=== PATIENT | female | born 1955 | race Caucasian/White ===

== ENCOUNTER 2020-12-11 11:09 | Outpatient (CLI) | payer MEDICARE | END 2020-12-11 11:10 | disposition home or self-care (01) | LOC: BICMAMMO 11:09 | PROVIDERS: ATTEND Family Medicine | DX: N63.31 Unspecified lump in axillary tail of the right breast (principal); N63.15 Unspecified lump in the right breast, overlapping quadrants | CPT/HCPCS: 76642; 77066; G0279 ==

== ENCOUNTER 2021-01-17 20:24 | Inpatient (IN) | payer MEDICARE ==
[2021-01-18] MEDS ORDERED: Senokot S 8.6-50 MG TAB PO PRN (00:59)
[2021-01-18] MEDS ORDERED: Dextrose 50% Abboject 50 ML SYRINGE SLOW IVP PRN (01:03)
[2021-01-18] MEDS ORDERED: HumaLOG 300 UNITS/3 ML VIAL SC PRN ×2 (01:03)
[2021-01-18] MEDS ORDERED: Dextrose 5% in Water 1,000 ML IV PRN (01:03)
[2021-01-18 01:55] VITALS: BMI 29.0
[2021-01-18] MEDS: Ibuprofen 600 MG TAB PO PRN ×2 (02:48→16:20)
[2021-01-18 04:50] LABS: #Eosinphils 0.2 thou/uL (0.0-0.7); #Lymphocytes 2.1 thou/uL (1.20-3.40); #Monocytes 0.7 thou/uL (0.11-0.59); #Neutrophils 9.1 thou/uL (1.40-6.50); %Basophils 0.1 % (0.0-1.0); %Eosinophils 1.7 % (0.0-10.0); %Lymphocytes 17.4 % (21.0-51.0); %Monocytes 5.8 % (0.0-10.0); %Neutrophils 74.9 % (42.0-75.0); Hemoglobin 9.9 g/dL (12.0-16.0); Mean Corpuscular Hemoglobin 31.4 pg (27.0-31.0); Mean Corpuscular Volume 92.5 fL (78.0-98.0); Mean Platelet Volume 8.4 fL (7.4-10.4); Platelet Count 242 thou/uL (130-400); RBC Distribution Width 11.7 % (11.5-14.5); Red Blood Cell (RBC) Count 3.16 mill/uL (4.20-5.40); White Blood Cell (WBC) Count 12.2 thou/uL (4.8-10.8)
[2021-01-18 04:54] LABS: Hemoglobin A1c 8.8 % (4.0-6.0)
[2021-01-18 05:08] LABS: ALT (SGPT) 17 U/L (8-55); AST (SGOT) 16 U/L (5-34); Albumin 3.1 g/dL (3.4-4.8); Alkaline Phosphatase 142 U/L (40-110); Anion Gap 14 mmol/L (10-20); BUN (Urea Nitrogen) 16 mg/dL (9.8-20.1); Bilirubin, Total 0.5 mg/dL (0.2-1.2); Calc. Creatinine Clearance 86 mL/min (70-130); Calcium 8.8 mg/dL (7.8-10.44); Carbon Dioxide 19 mmol/L (23-31); Chloride 109 mmol/L (98-107); Globulin 3.5 g/dL (2.4-3.5); Glucose 405 mg/dL (80-115); Potassium 3.9 mmol/L (3.5-5.1); Protein, Total 6.6 g/dL (5.8-8.1); Sodium 138 mmol/L (136-145)
[2021-01-18] MEDS: Famotidine 20 MG TAB PO SCH ×2 (07:55→21:35)
[2021-01-18] MEDS: diphenhydrAMINE 25 MG CAP PO PRN ×2 (07:55→17:20)
[2021-01-18] MEDS: Cefepime 2 GM in Sodium Chloride 0.9% 100 ML IVPB SCH ×2 (08:57→21:34)
[2021-01-18] MEDS ORDERED: VANCOMYCIN 1.25 GM/250 ML BAG 1.25 GM in Premix Bag 1 BAG IVPB SCH (09:00)
[2021-01-18] MEDS: Enoxaparin Sodium 40 MG/0.4 ML SYRINGE SC SCH (09:07)
[2021-01-18] MEDS ORDERED: Magnevist 469MG/ML 20 ML VIAL ONE (11:02)
[2021-01-18] MEDS: Insulin Regular 300 UNITS/3 ML VIAL SC PRN ×3 (11:24→21:35)
[2021-01-18] MEDS: GUAIFENESIN SF SOLN 200 MG/10 ML UDCUP PO PRN ×2 (16:54→22:15)
[2021-01-18] MEDS: VANCOMYCIN 1.25 GM/250 ML BAG 1.25 GM in Premix Bag 1 BAG IVPB SCH (21:35)
[2021-01-19 04:55] LABS: #Eosinphils 0.5 thou/uL (0.0-0.7); #Lymphocytes 2.7 thou/uL (1.20-3.40); #Monocytes 0.8 thou/uL (0.11-0.59); #Neutrophils 7.8 thou/uL (1.40-6.50); %Basophils 0.2 % (0.0-1.0); %Eosinophils 4.3 % (0.0-10.0); %Monocytes 6.4 % (0.0-10.0); %Neutrophils 66.3 % (42.0-75.0); Hemoglobin 10.2 g/dL (12.0-16.0); Mean Corpuscular HGB CONC 33.9 g/dL (32.0-36.0); Mean Corpuscular Hemoglobin 31.6 pg (27.0-31.0); Mean Corpuscular Volume 93.3 fL (78.0-98.0); Platelet Count 279 thou/uL (130-400); RBC Distribution Width 11.8 % (11.5-14.5); Red Blood Cell (RBC) Count 3.24 mill/uL (4.20-5.40); White Blood Cell (WBC) Count 11.8 thou/uL (4.8-10.8)
[2021-01-19 05:18] LABS: ALT (SGPT) 28 U/L (8-55); AST (SGOT) 30 U/L (5-34); Albumin 3.3 g/dL (3.4-4.8); Alkaline Phosphatase 184 U/L (40-110); Anion Gap 10 mmol/L (10-20); BUN (Urea Nitrogen) 13 mg/dL (9.8-20.1); Bilirubin, Total 0.5 mg/dL (0.2-1.2); Calc. Creatinine Clearance 96 mL/min (70-130); Calcium 9.3 mg/dL (7.8-10.44); Carbon Dioxide 21 mmol/L (23-31); Chloride 110 mmol/L (98-107); Globulin 3.4 g/dL (2.4-3.5); Glucose 228 mg/dL (80-115); Potassium 4.1 mmol/L (3.5-5.1); Protein, Total 6.7 g/dL (5.8-8.1); Sodium 137 mmol/L (136-145)
[2021-01-19] MEDS: GUAIFENESIN SF SOLN 200 MG/10 ML UDCUP PO PRN ×4 (05:18→19:53)
[2021-01-19] MEDS: Insulin Regular 300 UNITS/3 ML VIAL SC PRN ×3 (06:28→16:31)
[2021-01-19] MEDS: metFORMIN 500 MG TAB PO SCH ×2 (08:17→16:29)
[2021-01-19] MEDS: Famotidine 20 MG TAB PO SCH ×2 (08:17→19:53)
[2021-01-19] MEDS: Cefepime 2 GM in Sodium Chloride 0.9% 100 ML IVPB SCH (08:17)
[2021-01-19] MEDS: Enoxaparin Sodium 40 MG/0.4 ML SYRINGE SC SCH (08:18)
[2021-01-19 08:40] LABS: Vancomycin, Trough 14.1 ug/mL
[2021-01-19] MEDS: VANCOMYCIN 1.25 GM/250 ML BAG 1.25 GM in Premix Bag 1 BAG IVPB SCH (09:37)
[2021-01-19] MEDS: Nateglinide 120 MG TAB PO SCH ×2 (11:35→16:29)
[2021-01-19] MEDS ORDERED: cefTRIAXone\\ROCEPHIN 2 GM in Sodium Chloride 0.9% 100 ML IVPB SCH (20:00)
[2021-01-19] MEDS ORDERED: Vancomycin 1.5 GRAM/300 ML BAG 1.5 GM in Premix Bag 1 BAG IVPB SCH (21:00)
[2021-01-20] MEDS: GUAIFENESIN SF SOLN 200 MG/10 ML UDCUP PO PRN ×4 (01:30→19:36)
[2021-01-20 04:04] LABS: #Basophils 0.1 thou/uL (0.0-0.2); #Eosinphils 0.5 thou/uL (0.0-0.7); #Lymphocytes 2.8 thou/uL (1.20-3.40); #Monocytes 0.8 thou/uL (0.11-0.59); #Neutrophils 6.9 thou/uL (1.40-6.50); %Basophils 0.5 % (0.0-1.0); %Eosinophils 4.2 % (0.0-10.0); %Monocytes 7.3 % (0.0-10.0); Hemoglobin 9.7 g/dL (12.0-16.0); Mean Corpuscular HGB CONC 32.3 g/dL (32.0-36.0); Mean Corpuscular Volume 92.9 fL (78.0-98.0); Mean Platelet Volume 7.7 fL (7.4-10.4); Platelet Count 310 thou/uL (130-400); RBC Distribution Width 11.8 % (11.5-14.5); Red Blood Cell (RBC) Count 3.22 mill/uL (4.20-5.40)
[2021-01-20 04:24] LABS: Anion Gap 10 mmol/L (10-20); BUN (Urea Nitrogen) 12 mg/dL (9.8-20.1); Calc. Creatinine Clearance 105 mL/min (70-130); Carbon Dioxide 22 mmol/L (23-31); Chloride 107 mmol/L (98-107); Glucose 227 mg/dL (80-115); Potassium 3.7 mmol/L (3.5-5.1); Sodium 135 mmol/L (136-145)
[2021-01-20] MEDS: Insulin Regular 300 UNITS/3 ML VIAL SC PRN (05:33)
[2021-01-20] MEDS: Nateglinide 120 MG TAB PO SCH ×3 (07:30→16:52)
[2021-01-20] MEDS: Ibuprofen 600 MG TAB PO PRN (09:45)
[2021-01-20] MEDS: Famotidine 20 MG TAB PO SCH ×2 (09:45→20:25)
[2021-01-20] MEDS: Enoxaparin Sodium 40 MG/0.4 ML SYRINGE SC SCH (09:47)
[2021-01-20] MEDS: metFORMIN 500 MG TAB PO SCH ×2 (11:23→16:52)
[2021-01-20] MEDS ORDERED: Magnevist 469MG/ML 20 ML VIAL ONE (14:10)
[2021-01-20] MEDS ORDERED: MEROPENEM 1 GM/50 ML 1 GM in Premix Bag 1 BAG IVPB SCH (16:30)
[2021-01-20] MEDS: Vancomycin HCl 1.25 GM in Sodium Chloride 0.9% 250 ML 250 ML IVPB SCH (16:53)
[2021-01-20] MEDS ORDERED: Lantus 1000 UNITS/10 ML VIAL SC SCH (18:00)
[2021-01-20] MEDS ORDERED: Meropenem 1 GM in Sodium Chloride 0.9% 100 ML IVPB SCH (22:00)
[2021-01-21] MEDS: GUAIFENESIN SF SOLN 200 MG/10 ML UDCUP PO PRN ×3 (00:14→08:41)
[2021-01-21] MEDS: MEROPENEM 1 GM/50 ML 1 GM in Premix Bag 1 BAG IVPB SCH ×3 (00:15→17:18)
[2021-01-21] MEDS: Vancomycin HCl 1.25 GM in Sodium Chloride 0.9% 250 ML 250 ML IVPB SCH ×2 (04:27→17:26)
[2021-01-21] MEDS: Famotidine 20 MG TAB PO SCH ×2 (08:02→20:33)
[2021-01-21] MEDS: Sodium Chloride 0.9% 1,000 ML IV SCH ×2 (08:19→18:00)
[2021-01-21] MEDS: metFORMIN 500 MG TAB PO SCH ×2 (08:26→17:23)
[2021-01-21] MEDS: Enoxaparin Sodium 40 MG/0.4 ML SYRINGE SC SCH (08:27)
[2021-01-21] MEDS ORDERED: HYDROcodone/Acetaminophen 5/325 mg Tablet PO PRN (14:02)
[2021-01-21] MEDS ORDERED: Fentanyl 100 MCG/2 ML VIAL ONE ×2 (15:01→16:32)
[2021-01-21] MEDS ORDERED: Dexamethasone 20 MG/5 ML VIAL ONE (15:15)
[2021-01-21] MEDS ORDERED: PHENYLEPHRINE-NS 100 MCG/ML 10 ML SYRINGE ONE (15:15)
[2021-01-21] MEDS ORDERED: Ketorolac Tromethamine 30 MG/ML VIAL ONE (15:15)
[2021-01-21] MEDS ORDERED: Ondansetron PF 4 MG/2 ML Vial ONE (15:15)
[2021-01-21] MEDS ORDERED: PROPOFOL 200 MG/20 ML VIAL ONE (15:15)
[2021-01-21] MEDS ORDERED: Lidocaine 1% PF 5 ML VIAL ONE (15:15)
[2021-01-21] MEDS ORDERED: Ondansetron HCl/PF 4 MG/2 ML Vial IVP PRN (15:46)
[2021-01-21] MEDS ORDERED: Promethazine HCl 25 MG/ML VIAL IVPB PRN (15:46)
[2021-01-21] MEDS ORDERED: Meperidine HCl/PF 25 MG/ML VIAL SLOW IVP PRN (15:46)
[2021-01-21] MEDS ORDERED: Promethazine HCl 25 MG/ML VIAL IM PRN (15:46)
[2021-01-21] MEDS: Saccharomyces boulardii 250 MG CAP PO SCH (20:33)
[2021-01-21] MEDS: Insulin Regular 300 UNITS/3 ML VIAL SC PRN (20:34)
[2021-01-21] MEDS ORDERED: metFORMIN 500 MG TAB PO SCH (20:45)
[2021-01-22] MEDS: GUAIFENESIN SF SOLN 200 MG/10 ML UDCUP PO PRN ×2 (00:18→21:22)
[2021-01-22] MEDS: MEROPENEM 1 GM/50 ML 1 GM in Premix Bag 1 BAG IVPB SCH ×3 (01:34→16:26)
[2021-01-22 04:32] LABS: #Eosinphils 0.1 thou/uL (0.0-0.7); #Lymphocytes 1.7 thou/uL (1.20-3.40); #Monocytes 0.4 thou/uL (0.11-0.59); #Neutrophils 7.9 thou/uL (1.40-6.50); %Basophils 0.3 % (0.0-1.0); %Eosinophils 0.7 % (0.0-10.0); %Lymphocytes 16.7 % (21.0-51.0); %Monocytes 4.2 % (0.0-10.0); %Neutrophils 78.2 % (42.0-75.0); Hemoglobin 10.2 g/dL (12.0-16.0); Mean Corpuscular HGB CONC 33.9 g/dL (32.0-36.0); Mean Corpuscular Hemoglobin 31.5 pg (27.0-31.0); Mean Corpuscular Volume 92.9 fL (78.0-98.0); Mean Platelet Volume 7.4 fL (7.4-10.4); Platelet Count 421 thou/uL (130-400); RBC Distribution Width 11.6 % (11.5-14.5); Red Blood Cell (RBC) Count 3.23 mill/uL (4.20-5.40); White Blood Cell (WBC) Count 10.1 thou/uL (4.8-10.8)
[2021-01-22] MEDS: Sodium Chloride 0.9% 1,000 ML IV SCH ×3 (04:34→21:21)
[2021-01-22 04:43] LABS: Anion Gap 12 mmol/L (10-20); BUN (Urea Nitrogen) 10 mg/dL (9.8-20.1); Calc. Creatinine Clearance 108 mL/min (70-130); Carbon Dioxide 24 mmol/L (23-31); Chloride 105 mmol/L (98-107); Glucose 236 mg/dL (80-115); Sodium 137 mmol/L (136-145); Vancomycin, Trough 15.3 ug/mL
[2021-01-22] MEDS: Vancomycin HCl 1.25 GM in Sodium Chloride 0.9% 250 ML 250 ML IVPB SCH ×2 (05:03→17:39)
[2021-01-22] MEDS: Insulin Regular 300 UNITS/3 ML VIAL SC PRN (05:03)
[2021-01-22] MEDS: Nateglinide 120 MG TAB PO SCH ×3 (07:52→17:01)
[2021-01-22] MEDS: Enoxaparin Sodium 40 MG/0.4 ML SYRINGE SC SCH (08:18)
[2021-01-22] MEDS: Famotidine 20 MG TAB PO SCH ×2 (08:19→21:20)
[2021-01-22] MEDS: metFORMIN 500 MG TAB PO SCH ×2 (08:19→16:25)
[2021-01-22] MEDS ORDERED: Insulin Regular 300 UNITS/3 ML VIAL SC PRN (11:43)
[2021-01-22] MEDS: Saccharomyces boulardii 250 MG CAP PO SCH (21:20)
[2021-01-22] MEDS: Acetaminophen 325 MG TAB PO PRN (21:20)
[2021-01-23] MEDS: MEROPENEM 1 GM/50 ML 1 GM in Premix Bag 1 BAG IVPB SCH ×3 (00:09→17:58)
[2021-01-23] MEDS: Vancomycin HCl 1.25 GM in Sodium Chloride 0.9% 250 ML 250 ML IVPB SCH (05:09)
[2021-01-23] MEDS: VANCOMYCIN 1.25 GM/250 ML BAG 1.25 GM in Premix Bag 1 BAG IVPB SCH ×2 (05:13→17:58)
[2021-01-23] MEDS: Acetaminophen 325 MG TAB PO PRN ×2 (08:38→21:25)
[2021-01-23] MEDS: Famotidine 20 MG TAB PO SCH ×2 (08:39→21:25)
[2021-01-23] MEDS: Nateglinide 120 MG TAB PO SCH ×3 (08:39→17:59)
[2021-01-23] MEDS: Enoxaparin Sodium 40 MG/0.4 ML SYRINGE SC SCH (08:39)
[2021-01-23] MEDS: metFORMIN 500 MG TAB PO SCH (08:39)
[2021-01-23] MEDS: Sodium Chloride 0.9% 1,000 ML IV SCH ×2 (11:31→21:27)
[2021-01-23] MEDS ORDERED: Loperamide HCl 2 MG CAP PO PRN (12:16)
[2021-01-23] MEDS ORDERED: Hydrocortisone Acetate 25 MG Suppository PR PRN (12:20)
[2021-01-23 16:52] LABS: Vancomycin, Trough 18.5 ug/mL
[2021-01-23] MEDS: GUAIFENESIN SF SOLN 200 MG/10 ML UDCUP PO PRN (18:06)
[2021-01-23] MEDS ORDERED: Citrucel 500 MG TAB PO SCH (21:00)
[2021-01-23] MEDS: Saccharomyces boulardii 250 MG CAP PO SCH (21:25)
[2021-01-24] MEDS: MEROPENEM 1 GM/50 ML 1 GM in Premix Bag 1 BAG IVPB SCH ×2 (00:41→09:01)
[2021-01-24] MEDS: Sodium Chloride 0.9% 1,000 ML IV SCH (00:43)
[2021-01-24] MEDS: VANCOMYCIN 1.25 GM/250 ML BAG 1.25 GM in Premix Bag 1 BAG IVPB SCH (05:23)
[2021-01-24] MEDS: Nateglinide 120 MG TAB PO SCH ×2 (07:01→11:18)
[2021-01-24] MEDS: Famotidine 20 MG TAB PO SCH (09:01)
[2021-01-24] MEDS: Enoxaparin Sodium 40 MG/0.4 ML SYRINGE SC SCH (09:01)
[2021-01-24 09:16] VITALS: BP 140/73; TEMP 98.6
== END 2021-01-24 14:55 | disposition home health service (06) | DRG 854 ==
LOC: ONC 20:24 → OBSVTOIN 01-18 15:20
PROVIDERS: ADMIT Internal Medicine; ATTEND Internal Medicine
PROC: 0JBQ0ZZ Excision of Right Foot Subcutaneous Tissue and Fascia, Open Approach (ICD-10-PCS; principal; 2021-01-21)
DX: A41.9 Sepsis, unspecified organism (principal); L03.115 Cellulitis of right lower limb; R04.2 Hemoptysis; E11.52 Type 2 diabetes mellitus with diabetic peripheral angiopathy with gangrene; I96 Gangrene, not elsewhere classified; M60.073 Infective myositis, right foot; M77.51 Other enthesopathy of right foot and ankle; E11.628 Type 2 diabetes mellitus with other skin complications; E11.65 Type 2 diabetes mellitus with hyperglycemia; E11.22 Type 2 diabetes mellitus with diabetic chronic kidney disease; N18.2 Chronic kidney disease, stage 2 (mild); D63.1 Anemia in chronic kidney disease; Z88.2 Allergy status to sulfonamides; Z88.8 Allergy status to other drugs, medicaments and biological substances; Z88.1 Allergy status to other antibiotic agents; Z89.612 Acquired absence of left leg above knee; Z90.710 Acquired absence of both cervix and uterus
CPT/HCPCS: 36415; 36416; 71045; 80048; 80053; 80202; 83036; 85025; 87070; 87205; 96365; 96366; 96367; 96372; A9579; G0378; J0692; J0696; J1100; J1650; J1815; J1885; J2185; J2405; J2704; J3010; J3370; J3490; J7050; Q0163

== ENCOUNTER 2024-06-07 12:31 | Outpatient (CLI) | payer MEDICARE | END 2024-06-07 12:32 | disposition home or self-care (01) | LOC: BICMAMMO 12:31 | PROVIDERS: ATTEND Family Medicine | DX: Z12.31 Encounter for screening mammogram for malignant neoplasm of breast (principal); Z80.3 Family history of malignant neoplasm of breast | CPT/HCPCS: 77063; 77067 ==